=== PATIENT | female | born 1940 | race Caucasian/White ===

== ENCOUNTER 2017-12-18 05:24 | Emergency (ER) | payer MEDICARE, OTHER ==
[~2017-12-18 05:24] MED LIST: CLON1 OR; GABA300 PO; SYNT112T PO; [UNRECOGNIZED DRUG - OTHER] PO
[2017-12-18 05:26] VITALS: BP 129/60; PULSE 78; RESP 18; TEMP 98.9; O2SAT 96
[2017-12-18] MEDS ORDERED: GABA300C5 PO (05:41)
[2017-12-18] MEDS ORDERED: CLON1 PO (05:41)
[2017-12-18] MEDS ORDERED: SYNT112T PO (05:41)
[2017-12-18] MEDS ORDERED: ACIP20TA19 PO (05:41)
[2017-12-18] MEDS ORDERED: SODIUM CHLORIDE 0.9% FLUSH 10 ML FLUSH IV FLUSH PRN (06:00)
[2017-12-18] MEDS ORDERED: DICYCLOMINE HCL 10 MG CAP PO ONE (06:00)
--- NOTE | 2017-12-18 06:08 | PD ---
HPI Chief Complaint: Abdominal Pain Time Seen by Provider: 05:44 Travel History International Travel<30 days: No Contact w/Intl Traveler<30days: No Traveled to known affect area: No History of Present Illness HPI Patient is a 77-year-old female with a history of kidney stone CKD and diverticulitis presents emergency department for evaluation of suprapubic and left lower quadrant abdominal pain for the past 3-4 days. Patient has tried several [id number] medications including Gas-X MiraLAX and Pepto-Bismol without significant relief. States that it is suprapubic mostly in area but she has not had any burning urination or any blood in the urine, no vaginal bleeding vaginal discharge diarrhea constipation blood in stool or melanotic stools. States pain is intermittent, crampy, gradually worsening, over the past 3 days, context and associated signs symptoms as above. PFSH Past Medical History Blood Disorders: No Anxiety: Yes Cancer: Yes (BREAST) Cardiovascular Problems: No Diminished Hearing: No Endocrine: No Gastrointestinal Disorders: Yes (GRAVES, DIVERTICULITIS ) Genitourinary: No Hiatal Hernia: Yes Immune Disorder: No Kidney Stones: Yes (LITHOTRIPSY X 2 2002) Medical other: Yes (ARTHRITIS, REFLUX) Musculoskeletal: Yes (OSTEO MYILITIS L LLE) Neurologic: No Psychiatric: Yes Reproductive: No Respiratory: No Radiation Therapy: Yes Thyroid Disease: Yes Past Surgical History Abdominal Surgery: Yes (RONN.) Cardiac Surgery: No Cholecystectomy: Yes (1997) Ear Surgery: No Endocrine Surgery: No Eye Surgery: No Genitourinary Surgery: No Gynecologic Surgery: Yes (LEFT LUMPECTOMY ) Hysterectomy: Yes (1999) Oral Surgery: No Thoracic Surgery: Yes (LEFT BREAST LUMPECTOMY) Other Surgery: Yes (LEFT LUMPECTOMY AND NODE REMOVAL/BREAST CA 1989) Social History Alcohol Use: Yes (OCC) Tobacco Use: No (Stopped 1989/started age 20. Use to smoke 1 ) Substance Use: No Allergies-Medications (Allergen,Severity, Reaction): Coded Allergies: Sulfa (Sulfonamide Antibiotics) (Unverified Allergy, Severe, NAUSEA, ) adhesive (Unverified Allergy, Mild, Rash, 02/16/17) quinine (Unverified Adverse Reaction, Severe, ITCHING, 02/16/17) REACTION: ITCHING Reported Meds & Prescriptions Reported Meds & Active Scripts Active Reported Aciphex (Rabeprazole Sodium) 20 Mg Tab 20 Mg PO DAILY Synthroid (Levothyroxine Sodium) 112 Mcg Tab 112 Mcg PO DAILY Gabapentin 300 Mg Cap 300 Mg PO BID Klonopin (Clonazepam) 1 Mg Tab 1 Mg PO BID Review of Systems Except as stated in HPI: all other systems reviewed are Neg Physical Exam Narrative GENERAL: Well-developed well-nourished no obvious distress SKIN: Focused skin assessment warm/dry. HEAD: Atraumatic. Normocephalic. EYES: Pupils equal and round. No scleral icterus. No injection or drainage. ENT: No nasal bleeding or discharge. Mucous membranes pink and moist. NECK: Trachea midline. No JVD. CARDIOVASCULAR: Regular rate and rhythm. No murmur appreciated. RESPIRATORY: No accessory muscle use. Clear to auscultation. Breath sounds equal bilaterally. GASTROINTESTINAL: Abdomen soft, patient is mildly tender over the suprapubic region, no rebound no percussive tenderness, trivial amount of tenderness in left lower quadrant, no tenderness in the right lower quadrant. There is no guarding. He a tenderness, nondistended. Hepatic and splenic margins not palpable. MUSCULOSKELETAL: No obvious deformities. No clubbing. No cyanosis. No edema. NEUROLOGICAL: Awake and alert. No obvious cranial nerve deficits. Motor grossly within normal limits. Normal speech. PSYCHIATRIC: Appropriate mood and affect; insight and judgment normal. Data Data Last Documented VS Vital Signs Date Time Temp Pulse Resp B/P (MAP) Pulse Ox O2 Delivery O2 Flow Rate FiO2 12/18/17 05:26 98.9 78 18 129/60 (83) 96 Orders Orders Complete Blood Count With Diff (12/18/17 05:57) Comprehensive Metabolic Panel (12/18/17 05:57) Lipase (12/18/17 05:57) Urinalysis - C+S If Indicated (12/18/17 05:57) Iv Access Insert/Monitor (12/18/17 05:57) Ecg Monitoring (12/18/17 05:57) Oximetry (12/18/17 05:57) Sodium Chloride 0.9% Flush (Ns Flush) (12/18/17 06:00) Dicyclomine (Bentyl) (12/18/17 06:00) Ct Abd/Pel W Iv Contrast(Rout) (12/18/17 ) Labs Laboratory Tests Test 12/18/17 06:05 12/18/17 06:17 White Blood Count 6.8 TH/MM3 Red Blood Count 4.65 MIL/MM3 Hemoglobin 13.6 GM/DL Hematocrit 39.8 % Mean Corpuscular Volume 85.7 FL Mean Corpuscular Hemoglobin 29.4 PG Mean Corpuscular Hemoglobin Concent 34.3 % Red Cell Distribution Width 14.2 % Platelet Count 150 TH/MM3 Mean Platelet Volume 8.1 FL Neutrophils (%) (Auto) 77.1 % Lymphocytes (%) (Auto) 14.0 % Monocytes (%) (Auto) 6.5 % Eosinophils (%) (Auto) 2.0 % Basophils (%) (Auto) 0.4 % Neutrophils # (Auto) 5.3 TH/MM3 Lymphocytes # (Auto) 1.0 TH/MM3 Monocytes # (Auto) 0.4 TH/MM3 Eosinophils # (Auto) 0.1 TH/MM3 Basophils # (Auto) 0.0 TH/MM3 CBC Comment DIFF FINAL Differential Comment Blood Urea Nitrogen 18 MG/DL Creatinine 0.96 MG/DL Random Glucose 106 MG/DL Total Protein 6.8 GM/DL Albumin 3.7 GM/DL Calcium Level 8.8 MG/DL Alkaline Phosphatase 74 U/L Aspartate Amino Transf (AST/SGOT) 11 U/L Alanine Aminotransferase (ALT/SGPT) 15 U/L Total Bilirubin 0.7 MG/DL Sodium Level 142 MEQ/L Potassium Level 3.5 MEQ/L Chloride Level 110 MEQ/L Carbon Dioxide Level 22.0 MEQ/L Anion Gap 10 MEQ/L Estimat Glomerular Filtration Rate 56 ML/MIN Lipase 130 U/L Urine Color Straw Urine Turbidity CLEAR Urine pH 5.0 Urine Specific [place] 1.006 Urine Protein NEG mg/dL Urine Glucose (UA) NEG mg/dL Urine Ketones NEG mg/dL Urine Occult Blood SMALL Urine Nitrite NEG Urine Bilirubin NEG Urine Urobilinogen LESS THAN 2 mg/dL Urine Leukocyte Esterase TRACE Urine RBC 1 /hpf Urine WBC 2 /hpf Urine Squamous Epithelial Cells <1 /hpf Urine Mucus FEW /lpf Microscopic Urinalysis Comment CULT NOT INDICATED MDM Medical Decision Making Medical Screen Exam Complete: Yes Emergency Medical Condition: Yes Differential Diagnosis Diverticulitis, kidney stone, diverticulosis, UTI. Narrative Course patient roomed in the ER, certainly with her suprapubic pain my differential diagnosis that leads is UTI. However the patient tested negative for UTI, diverticulitis and complications thereof as well as kidney stones are on the differential as well. Given the labs are normal but her age I recommended for CAT scan of her abdomen, patient discussed with at 07 100 shift change to follow-up the CT and disposition appropriately. Jeff Archer MD Dec 18, 2017 06:08
[2017-12-18 06:23] LABS: AUTOMATED NEUTROPHIL # 5.3 TH/MM3 (1.8-7.7); BASOPHIL % 0.4 % (0.0-2.0); EOSINOPHIL # 0.1 TH/MM3 (0-0.4); HEMATOCRIT 39.8 % (35.0-46.0); HEMOGLOBIN 13.6 GM/DL (11.6-15.3); MEAN CELL VOLUME 85.7 FL (80.0-100.0); MEAN CORPUSCULAR HEMOGLOBIN 29.4 PG (27.0-34.0); MEAN CORPUSCULAR HGB CONC 34.3 % (32.0-36.0); MEAN PLATELET VOLUME 8.1 FL (7.0-11.0); MONO % 6.5 % (0.0-8.0); MONOCYTE # 0.4 TH/MM3 (0-0.9); NEUT % 77.1 % (16.0-70.0); PLATELET COUNT 150 TH/MM3 (150-450); RED BLOOD COUNT 4.65 MIL/MM3 (4.00-5.30); RED CELL DISTRIBUTION WIDTH 14.2 % (11.6-17.2); WHITE BLOOD COUNT 6.8 TH/MM3 (4.0-11.0)
[2017-12-18 06:41] LABS: ALBUMIN 3.7 GM/DL (3.4-5.0); AST (GOT) 11 U/L (15-37); BLOOD UREA NITROGEN 18 MG/DL (7-18); CALCIUM 8.8 MG/DL (8.5-10.1); CHLORIDE 110 MEQ/L (98-107); CREATININE 0.96 MG/DL (0.50-1.00); GLOMERULAR FILTRATION RATE 56 ML/MIN (>89); GLUCOSE,RANDOM 106 MG/DL (74-106); SODIUM (NA) 142 MEQ/L (136-145)
[2017-12-18 06:44] LABS: ALKALINE PHOSPHATASE 74 U/L (45-117); ALT (GPT) 15 U/L (10-53); TOTAL BILIRUBIN ADULT 0.7 MG/DL (0.2-1.0); TOTAL PROTEIN 6.8 GM/DL (6.4-8.2)
[2017-12-18 06:47] LABS: BILIRUBIN, URINE NEG (NEG); BLOOD, URINE SMALL (NEG); GLUCOSE,URINE NEG (NEG); KETONE, URINE NEG (NEG); MUCUS URINE FEW /lpf (OCC); NITRITE,URINE NEG (NEG); SQUAMOUS EPITHELIAL CELL URINE <1 /hpf (0-5); URINE COLOR Straw (YELLW/STRAW); URINE LEUKOCYTE ESTERASE TRACE (NEG)
[2017-12-18] MEDS ORDERED: IOHEXOL 350 MG/ML 10 ML VIAL (for RAD DIAG) IVCONTRAST ONE (08:02)
--- NOTE | 2017-12-18 08:28 | RADRPT ---
EXAM DATE: 12/18/2017 8:13 AM EDT AGE/SEX: 77 years / Female INDICATIONS: Left lower abdomen pain and suprapubic for three days. CLINICAL DATA: This is the patient's initial encounter. Patient reports that signs and symptoms have been present for 3 days and indicates a pain score of 7/10. MEDICAL/SURGICAL HISTORY: Hiatal hernia. Carcinoma, breast. Diverticulitis. Kidney stones. Cholecystectomy. Hysterectomy. Lithotripsy. ORAL CONTRAST: No oral contrast ingested. RADIATION DOSE: 8.77 CTDI (mGy) COMPARISON: [facility] [place], CT ABDOMEN & PELVIS W/O CONTRAST, 04/29/2013. . TECHNIQUE: Multiple contiguous axial images were obtained through the abdomen and pelvis following b olus infusion of 92 ml Omnipaque 350 (iohexol) nonionic water-soluble contrast as a single exam dos e. No oral contrast ingested. Using automated exposure control and adjustment of the mA and/or kV ac cording to patient size, the radiation dose was kept as low as reasonably achievable to obtain optima l diagnostic quality images. FINDINGS: Lower chest: No acute abnormality is identified. Hepatobiliary: No focal liver lesion is identified. Hepatic vasculature demonstrates no abnormality. Gallbladder is absent with clips in the gallbladder fossa. Kidneys: There is a nonobstructing stone in the right upper pole renal collecting system measuring 4 mm. A nonobstructing stone is present in the left lower pole collecting system measuring 11 x 7 mm. T here is abnormal high density within the left upper renal collecting system. No hydronephrosis is pre sent. Adrenal Glands: Within normal limits. Spleen: Within normal limits. There are punctate calcifications in the spleen. Pancreas: Within normal limits. Vascular: The aorta is nonaneurysmal. There is severe atherosclerotic disease of the aorta. Bowel/Mesentery: A small hiatal hernia is present. Small bowel demonstrates no abnormality. There is sigmoid diverticulosis with wall thickening of the mid sigmoid colon and pericolonic inflammation. No abscess, free air, or free fluid is present. Abdominal Wall: No hernia is visualized. Retroperitoneum: No lymphadenopathy. Bladder: No wall thickening or mass. Reproductive: Uterus is absent. No adnexal abnormality is seen. Inguinal: No lymphadenopathy or hernia. Musculoskeletal: No acute osseous abnormality is identified. There is levoscoliosis with multilevel d egenerative change throughout the lumbar spine. CONCLUSION: 1. The above findings are diagnostic of a sigmoid diverticulitis. The mid sigmoid colon demonstrates abnormal wall thickening and pericolonic inflammation and contains multiple diverticula. There is no abscess, free air, or free fluid present. 2. There is abnormal hypodensity material within the left upper pole renal collecting system. The ap pearance is suspicious for a mass. Transitional cell carcinoma could have this appearance. When patie nt condition permits suggest renal protocol MRI with and without intravenous contrast for further allison racterization. 3. Nonacute findings include small hiatal hernia, bilateral nonobstructing renal stones, and severe atherosclerotic disease. Electronically signed by: Derek Hogan MD 12/18/2017 8:26 AM EDT
[2017-12-18] MEDS ORDERED: METR-1 PO (08:44)
[2017-12-18] MEDS ORDERED: IBUP-232 PO (08:44)
[2017-12-18] MEDS ORDERED: CIPR-9 PO (08:44)
--- NOTE | 2017-12-18 08:44 | PD ---
Physical Exam Date Seen by Provider: Dec 18, 2017 Time Seen by Provider: 07:00 Narrative Patient initially seen by Dr. Archer, please see his notes for further details. She is awaiting CAT scan, history of diverticulitis. Lab work was fairly unremarkable. Laboratory Tests Test 12/18/17 06:05 12/18/17 06:17 Neutrophils (%) (Auto) 77.1 % (16.0-70.0) Aspartate Amino Transf (AST/SGOT) 11 U/L (15-37) Chloride Level 110 MEQ/L (98-107) Estimat Glomerular Filtration Rate 56 ML/MIN (>89) Urine Occult Blood SMALL (NEG) Urine Leukocyte Esterase TRACE (NEG) Urine Mucus FEW /lpf (OCC) Last 24 hours Impressions Abdomen/Pelvis CT 12/18/17 0000 Signed Impressions: CONCLUSION: 1. The above findings are diagnostic of a sigmoid diverticulitis. The mid sigm oid colon demonstrates abnormal wall thickening and pericolonic inflammation an d contains multiple diverticula. There is no abscess, free air, or free fluid p resent. 2. There is abnormal hypodensity material within the left upper pole renal col lecting system. The appearance is suspicious for a mass. Transitional cell carc inoma could have this appearance. When patient condition permits suggest renal protocol MRI with and without intravenous contrast for further characterization . 3. Nonacute findings include small hiatal hernia, bilateral nonobstructing gutierrez al stones, and severe atherosclerotic disease. CAT scan is showing signs of diverticulitis which I plan to treat with Flagyl, Cipro, and ibuprofen. She also has a left abnormal hypodensity area on the apex of the left kidney which will need to be evaluated further with an MRI with primary care doctor. At this point, I have notified her of the finding and have notified her that this could represent a mass, needs evaluation. Patient states understanding. She should return for any worsening in symptoms as needed. The plan has been discussed with her and she states understanding. Data Data Last Documented VS Vital Signs Date Time Temp Pulse Resp B/P (MAP) Pulse Ox O2 Delivery O2 Flow Rate FiO2 12/18/17 05:26 98.9 78 18 129/60 (83) 96 Orders Orders Complete Blood Count With Diff (12/18/17 05:57) Comprehensive Metabolic Panel (12/18/17 05:57) Lipase (12/18/17 05:57) Urinalysis - C+S If Indicated (12/18/17 05:57) Iv Access Insert/Monitor (12/18/17 05:57) Ecg Monitoring (12/18/17 05:57) Oximetry (12/18/17 05:57) Sodium Chloride 0.9% Flush (Ns Flush) (12/18/17 06:00) Dicyclomine (Bentyl) (12/18/17 06:00) Ct Abd/Pel W Iv Contrast(Rout) (12/18/17 ) Iohexol 350 Inj (Omnipaque 350 Inj) (12/18/17 08:02) Ed Discharge Order (12/18/17 08:41) Labs Laboratory Tests Test 12/18/17 06:05 12/18/17 06:17 White Blood Count 6.8 TH/MM3 Red Blood Count 4.65 MIL/MM3 Hemoglobin 13.6 GM/DL Hematocrit 39.8 % Mean Corpuscular Volume 85.7 FL Mean Corpuscular Hemoglobin 29.4 PG Mean Corpuscular Hemoglobin Concent 34.3 % Red Cell Distribution Width 14.2 % Platelet Count 150 TH/MM3 Mean Platelet Volume 8.1 FL Neutrophils (%) (Auto) 77.1 % Lymphocytes (%) (Auto) 14.0 % Monocytes (%) (Auto) 6.5 % Eosinophils (%) (Auto) 2.0 % Basophils (%) (Auto) 0.4 % Neutrophils # (Auto) 5.3 TH/MM3 Lymphocytes # (Auto) 1.0 TH/MM3 Monocytes # (Auto) 0.4 TH/MM3 Eosinophils # (Auto) 0.1 TH/MM3 Basophils # (Auto) 0.0 TH/MM3 CBC Comment DIFF FINAL Differential Comment Blood Urea Nitrogen 18 MG/DL Creatinine 0.96 MG/DL Random Glucose 106 MG/DL Total Protein 6.8 GM/DL Albumin 3.7 GM/DL Calcium Level 8.8 MG/DL Alkaline Phosphatase 74 U/L Aspartate Amino Transf (AST/SGOT) 11 U/L Alanine Aminotransferase (ALT/SGPT) 15 U/L Total Bilirubin 0.7 MG/DL Sodium Level 142 MEQ/L Potassium Level 3.5 MEQ/L Chloride Level 110 MEQ/L Carbon Dioxide Level 22.0 MEQ/L Anion Gap 10 MEQ/L Estimat Glomerular Filtration Rate 56 ML/MIN Lipase 130 U/L Urine Color Straw Urine Turbidity CLEAR Urine pH 5.0 Urine Specific [place] 1.006 Urine Protein NEG mg/dL Urine Glucose (UA) NEG mg/dL Urine Ketones NEG mg/dL Urine Occult Blood SMALL Urine Nitrite NEG Urine Bilirubin NEG Urine Urobilinogen LESS THAN 2 mg/dL Urine Leukocyte Esterase TRACE Urine RBC 1 /hpf Urine WBC 2 /hpf Urine Squamous Epithelial Cells <1 /hpf Urine Mucus FEW /lpf Microscopic Urinalysis Comment CULT NOT INDICATED MDM Medical Record Reviewed: Yes Supervised Visit with COLLINS: No Diagnosis Primary Impression: Diverticulitis Additional Instruction: There is an abnormal area above the left kidney which will need to be characterized further with an MRI, talk to your primary care doctor regarding this issue. Return for any worsening in pain, fevers, and as needed. Med/Other Pt SpecificInfo: Prescription(s) given Scripts Ibuprofen (Ibuprofen) 600 Mg Tab 600 MG PO Q6H Y for Pain/Inflammation, #20 TAB 0 Refills Prov: Neda Dial MD 12/18/17 Metronidazole (Flagyl) 500 Mg Tab 500 MG PO TID for Infection for 7 Days, TAB 0 Refills Prov: Neda Dial MD 12/18/17 Ciprofloxacin (Cipro) 500 Mg Tab 500 MG PO BID for Infection for 7 Days, #14 TAB 0 Refills Prov: Neda Dial MD 12/18/17 Disposition: 01 DISCHARGE HOME Condition: Stable Neda Dial MD Dec 18, 2017 08:44
== END 2017-12-18 09:26 | disposition home or self-care (01) ==
LOC: NEPE 05:24
DX: K57.92 Diverticulitis of intestine, part unspecified, without perforation or abscess without bleeding (principal); K44.9 Diaphragmatic hernia without obstruction or gangrene; N20.0 Calculus of kidney; F41.9 Anxiety disorder, unspecified; M19.90 Unspecified osteoarthritis, unspecified site; K21.9 Gastro-esophageal reflux disease without esophagitis; M86.9 Osteomyelitis, unspecified; E07.9 Disorder of thyroid, unspecified; F17.200 Nicotine dependence, unspecified, uncomplicated; Z79.899 Other long term (current) drug therapy; Z88.2 Allergy status to sulfonamides; Z88.8 Allergy status to other drugs, medicaments and biological substances; Z85.3 Personal history of malignant neoplasm of breast; Z87.19 Personal history of other diseases of the digestive system; Z87.442 Personal history of urinary calculi
CPT/HCPCS: 74177; 80053; 81001; 83690; 85025; 99284; Q9967

== ENCOUNTER 2018-04-15 10:42 | Inpatient (IN) ==
[2018-04-15] MEDS ORDERED: Metoprolol Tartrate 25 MG Tablet PO ONE (11:15)
[2018-04-15] MEDS ORDERED: Chlorhexidine Gluconate 2% 1 Pack (2 Cloths) TOPICAL ONE (11:15)
[2018-04-15] MEDS ORDERED: Sodium Chlor 0.9% Inj 500 ML IV.CONT ONE ×2 (11:15→12:42)
[2018-04-15] MEDS ORDERED: ceFAZolin 2 GM IV; once IV.SIG ONE (12:00)
[2018-04-15 12:02] LABS: Prothrombin Time 10.1 sec (9.8-11.6)
[2018-04-15] MEDS ORDERED: Phenylephrine/NS 1000 MCG/10ML Syringe IV.PUSH ONE (12:42)
[2018-04-15] MEDS ORDERED: Lidocaine PF 1% Inj 5 ML Syringe INFILTRATN ONE (12:42)
[2018-04-15] MEDS ORDERED: Sugammadex Inj 200 MG/2 ML Vial IV.PUSH ONE (16:58)
[2018-04-15] MEDS ORDERED: fentaNYL Citrate Inj 100 MCG/2 ML Ampul ONE (17:04)
[2018-04-15] MEDS ORDERED: Morphine Inj 4 MG/ML Vial IV.PUSH PRN (17:14)
[2018-04-15] MEDS ORDERED: *morphine SULFATE 10 MG/ML PERIprocedure ONLY ONE (17:57)
[2018-04-15] MEDS ORDERED: Morphine Inj 4 MG/ML Vial ONE (17:59)
[2018-04-15] MEDS ORDERED: Pantoprazole Inj 40 MG Vial IV.PUSH SCH (18:00)
[2018-04-15] MEDS ORDERED: Sodium Chlor 0.9% Inj 1,000 ML IV.SIG SCH (18:00)
[2018-04-15 18:04] LABS: Baso % (Auto) 0.3 % (0.0-2.0); Eos % (Auto) 0.1 % (0.0-4.0); Hematocrit 38.4 % (35.0-46.0); Hemoglobin 13.2 gm/dL (11.6-15.3); Lymph # (Auto) 0.7 th/mm3 (1.0-4.8); Lymph % (Auto) 7.2 % (9.0-44.0); Mean Corpuscular HGB Conc 34.5 % (32.0-36.0); Mean Corpuscular Hemoglobin 29.7 pg (27.0-34.0); Mean Corpuscular Volume 86.2 fL (80.0-100.0); Mean Platelet Volume 7.8 fL (7.0-11.0); Mono # (Auto) 0.2 th/mm3 (0.0-0.9); Mono % (Auto) 1.9 % (0.0-8.0); Neut # (Auto) 8.3 th/mm3 (1.8-7.7); Neut % (Auto) 90.5 % (16.0-70.0); Platelet Count 148 th/mm3 (150-450); Red Blood Count 4.46 mil/mm3 (4.00-5.30); Red Cell Distribution Width 14.2 % (11.6-17.2); White Blood Count 9.1 th/mm3 (4.0-11.0)
[2018-04-15] MEDS ORDERED: *morphine SULFATE 4 MG/ML PERIprocedure ONLY ONE ×2 (18:07→18:31)
[2018-04-15] MEDS ORDERED: *Meperidine Inj 25 MG/ML Vial PERIprocedural Use ONLY ONE (18:13)
[2018-04-15] MEDS ORDERED: Clindamycin Inj 600 MG/4 ML Vial ONE (18:22)
[2018-04-15] MEDS: Clindamycin 600 mg/NS Premix 600 MG/50 ML PIGGYBACK IV.SIG SCH (18:30)
[2018-04-15 18:40] LABS: Calcium 8.4 mg/dL (8.5-10.1); Potassium 3.8 meq/L (3.5-5.1)
[2018-04-15] MEDS ORDERED: *HYDROmorphone PF Inj 1 MG/ML Ampul PERIprocedural Use ONLY ONE (18:46)
--- NOTE | 2018-04-15 19:07 | MP ---
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 PROCEDURE PERFORMED: Robotic-assisted laparoscopic left nephroureterectomy with bladder cuff. SURGEON: Shahzad Robert MD ANESTHESIA: General. COMPLICATIONS: None. PREOPERATIVE ANTIBIOTICS: Ancef 2 grams IV. DRAINS: Modi catheter to gravity drainage. SPECIMENS: Left kidney and ureter and bladder cuff for permanent. ESTIMATED BLOOD LOSS: 150 mL. FLUIDS: 1700 mL of crystalloid per anesthesia. DISPOSITION: Stable to recovery. INDICATIONS: The patient is a 77-year-old female who was found to have a filling defect in the upper pole of the left kidney on a recent CT scan. The patient underwent a cystoscopy and ureteroscopy with biopsy and was found to have high-grade T1 disease. The patient was referred for removal of her kidney and ureter. After treatment options were discussed, she elected to proceed. Informed consent was obtained. DETAILS OF PROCEDURE: The patient was properly identified and brought back to the operating room and was laid supine on the operating table. A proper timeout was performed. Under the direction of anesthesiology, the patient was intubated and induced under general anesthetic. Preoperative antibiotics in the form of Ancef 2 grams IV were given within 1 hour of the start of the procedure. A Modi catheter was placed under sterile technique. She was then placed in the right lateral decubitus position with the left side up. All pressure points were padded. She was then prepped and draped in normal sterile surgical fashion. A stab incision was made superior and lateral to the umbilicus. A Veress needle was then used to gain entrance into the abdominal cavity. Insufflation was then achieved and pneumoperitoneum was reached. The incision was extended approximately 2 cm. We then passed a long 12 mm camera port under direct vision into the abdominal cavity. There was no evidence of any intra-abdominal injury. The intra-abdominal cavity did not appear to have any adhesions. Four other ports were then placed under direct visualization, including two 8 mm robotic ports which were triangulated off of the camera port and two 12 mm embalmer assistant ports in the midline, 1 superior and 1 inferior to the umbilicus. The robot was then brought into position and docked. I began by reflecting the colon medially by taking down the white line of Toldt. This exposed the retroperitoneum. She did not have much perinephric fat. At this time, I was easily able to find the ureter and gonadal vein through blunt dissection. I developed a plane between these structures and the psoas muscle and dissected the posterior portion of the kidney with blunt dissection as I followed the insertion of the left gonadal vein to the left renal vein. The left gonadal vein was subsequently taken with the robotic vessel sealer. At this point, the vein and artery were carefully dissected out. The artery was in a very difficult position in order to divide; however, was easily accessible if we divided the vein first. Therefore, the renal vein was then divided and taken with an endovascular GI stapler. There was some back bleeding and the kidney got slightly congested as we further dissected out the renal artery, but then the renal artery was divided as well with no issues. At this point, the hilum appeared to be dry. I then dissected the superior and lateral portions of the kidney with a combination of electrocautery and blunt dissection, leaving just the inferior portion of the kidney intact with the ureter. At this point, I then placed a Hem-o-marc across the proximal ureter and then carefully dissected the ureter all the way down in the pelvis distal to the iliacs and even further until I got to the bladder. The bladder was gently filled, which enabled the intramural ureter to be dissected out of the bladder. At this point, I then scored around the ureter and bladder and removed the entire ureter in its entirety with a small piece of bladder tissue. This left a small hole in the bladder. This was placed in an EndoCatch bag for later removal. Due to the patient's previous hysterectomy and the narrowness of her pelvis, I was unable to close the hole in its entirety, but it was a very tiny hole and therefore, it should be able to close without issues with just catheter drainage. At this point, with the specimen in the EndoCatch bag, I then inspected the renal hilum and adrenal bed. It appeared to be dry with no evidence of any bleeding. Then, 5 mL of Evicel was used on the hilum and the renal fossa for hemostatic purposes. At this point, the kidney was then extracted through the left lower quadrant incision after extending the incision. The incision was closed in 2 layers. The peritoneum was closed with 3-0 Vicryl and the fascia was closed with a running 1-0 PDS. The epigastrics appeared to be intact. There was no evidence of any bleeding. A second look was then performed. The abdomen was reinsufflated. The pelvis and renal fossa appeared to be dry. The underside of the incision was free of bowel. At this point, all ports were removed under direct visualization. The incisions were closed with Monocryl sutures and reinforced with Dermabond. Sponge and needle counts and instrument counts were correct at the end of the case. The patient was extubated and taken to the recovery room in stable condition. She will be admitted for routine postoperative care. MD WILMA Lozada/vicky , 05:26 PM , 05:38 PM
[2018-04-15] MEDS: Docusate Sodium 100 MG Capsule PO SCH (20:42)
[2018-04-15] MEDS: Gabapentin 300 MG Capsule PO SCH (20:42)
[2018-04-15] MEDS: clonazePAM 1 MG Tablet PO SCH (20:42)
[2018-04-16] MEDS: Clindamycin 600 mg/NS Premix 600 MG/50 ML PIGGYBACK IV.SIG SCH ×2 (04:22→09:49)
[2018-04-16] MEDS: Levothyroxine 100 MCG Tablet PO SCH (05:15)
[2018-04-16 05:56] LABS: Hematocrit 34.4 % (35.0-46.0); Hemoglobin 11.8 gm/dL (11.6-15.3); Mean Corpuscular HGB Conc 34.4 % (32.0-36.0); Mean Corpuscular Hemoglobin 29.7 pg (27.0-34.0); Mean Corpuscular Volume 86.2 fL (80.0-100.0); Mean Platelet Volume 8.3 fL (7.0-11.0); Platelet Count 145 th/mm3 (150-450); White Blood Count 7.8 th/mm3 (4.0-11.0)
[2018-04-16 06:25] LABS: Calcium 7.9 mg/dL (8.5-10.1); Carbon Dioxide 23.3 meq/L (21.0-32.0); Potassium 4.5 meq/L (3.5-5.1)
[2018-04-16] MEDS: clonazePAM 1 MG Tablet PO SCH ×2 (09:42→20:13)
[2018-04-16] MEDS: Gabapentin 300 MG Capsule PO SCH ×2 (09:43→20:12)
[2018-04-16] MEDS: Docusate Sodium 100 MG Capsule PO SCH ×2 (09:43→20:13)
--- NOTE | 2018-04-16 12:05 | P.PNURO ---
Subjective Patient symptoms today: pain well controlled. Denies N/V/F/C. Tolerating clears. Has not been OOB. Denies flatus. BP has been on low side. Objective Vital Signs: Vital Signs 04/15/18 17:45 04/15/18 18:00 04/15/18 18:15 Temperature 97.3 F L Pulse Rate 72 71 68 Respiratory Rate 20 21 23 Blood Pressure 122/60 128/67 118/68 Pulse Oximetry 97 98 99 04/15/18 18:30 04/15/18 18:45 04/15/18 19:00 Temperature 97.3 F L Pulse Rate 67 63 64 Respiratory Rate 24 23 8 L Blood Pressure 105/55 L 116/56 L 116/58 L Pulse Oximetry 98 98 100 04/15/18 19:51 04/15/18 19:52 04/15/18 19:53 Temperature Pulse Rate Respiratory Rate 10 L 22 20 Blood Pressure Pulse Oximetry 04/15/18 20:00 04/15/18 21:17 04/16/18 00:00 Temperature 97.2 F L 97.3 F L Pulse Rate 60 63 Respiratory Rate 19 19 Blood Pressure 100/54 L 108/55 L Pulse Oximetry 99 100 96 04/16/18 08:00 04/16/18 09:45 Temperature 97.3 F L Pulse Rate 50 L Respiratory Rate 16 Blood Pressure 94/49 L Pulse Oximetry 96 96 Intake & Output 04/15/18 04/16/18 04/16/18 18:59 06:59 18:59 Intake Total 2160 / 2160 1999 / 1999 50 / 50 Output Total 750 / 750 980 / 980 Balance 1410 / 1410 1020 / 1020 50 / 50 Weight 79.5 kg 79.5 kg Intake: IV 1100 / 1100 50 / 50 Cleocin 600 mg/NS Premix 600 mg 100 / 100 50 / 50 In 50 ml @ 100 mls/hr IV.SIG Q8H SONJA Rx#:[id number] NS Inj 1,000 ML @ 125 mls/hr IV 1000 / 1000 .SIG .Q10H SONJA Rx#:[id number] Oral 60 / 60 900 / 900 Anesthesia Amount 2100 / 2100 Output: Urine 900 / 900 Estimated Blood Loss 150 / 150 Urine Amount (Catheter) 600 / 600 80 / 80 Indwelling Urethral Catheter 600 / 600 80 / 80 Other: Weight On Admission 79.5 kg Result Diagrams: 04/16/18 03:36 04/16/18 03:36 Medications and IVs: Active Medications Generic Name Dose Route Start Last Admin Trade Name Pamela PRN Reason Stop Dose Admin Clonazepam 1 mg 04/15/18 21:00 04/16/18 09:42 Klonopin PO 1 mg BID SONJA Administration Docusate Sodium 100 mg 04/15/18 21:00 04/16/18 09:43 Colace PO 100 mg BID SONJA Administration Gabapentin 300 mg 04/15/18 21:00 04/16/18 09:43 Neurontin PO 300 mg BID SONJA Administration Sodium Chloride 1,000 mls @ 125 mls/hr 04/15/18 18:00 04/16/18 05:18 Ns Inj IV.SIG Infused .Q10H SONJA Infusion Levothyroxine Sodium 100 mcg 04/16/18 06:00 04/16/18 05:15 Synthroid PO 100 mcg DAILY@0600 SONJA Administration Miscellaneous Information 1 each 04/15/18 18:06 Misc Nursing Information OTHER 04/16/18 18:06 UNSCH PRN SEE LABEL COMMENTS Morphine Sulfate 4 mg 04/15/18 17:14 Morphine Inj IV.PUSH Q4H PRN BREAKTHROUGH PAIN Ondansetron HCl 4 mg 04/15/18 17:14 Zofran Inj IV.PUSH Q6H PRN NAUSEA OR VOMITING Oxycodone/Acetaminophen 2 tab 04/15/18 17:13 Percocet 5/325 Mg PO Q4H PRN PAIN SCALE 6 TO 10 Oxycodone/Acetaminophen 1 tab 04/15/18 17:17 04/16/18 09:44 Percocet 5/325 Mg PO 1 tab Q4H PRN Administration PAIN SCALE 3 TO 5 Pantoprazole Sodium 40 mg 04/15/18 21:00 04/15/18 20:42 Protonix PO 40 mg HS SONJA Administration Objective Remarks: NAD. A/O x 3 CTAB RRR soft, NT, ND. Inc c/d/i Ext NT. No edema urine clear in curry. Assessment and Plan - Plan POD #1 s/p Left Robotic Nephroureterectomy -Good UOP, but hypotensive. 1L bolus. continue IVF. -Hgb stable. Repeat in a.m. -Creatinine rising as expected. Repeat in A.M. -Regular diet in morning. -D/C antoinette in A.M. -Ambulate, IS.
[2018-04-16] MEDS ORDERED: Sod Chloride 0.9% Inj 1,000 ML IV.SIG SCH (12:15)
[2018-04-17 05:53] LABS: Hematocrit 30.8 % (35.0-46.0); Hemoglobin 10.6 gm/dL (11.6-15.3); Mean Corpuscular HGB Conc 34.5 % (32.0-36.0); Mean Corpuscular Hemoglobin 29.9 pg (27.0-34.0); Mean Corpuscular Volume 86.6 fL (80.0-100.0); Mean Platelet Volume 8.4 fL (7.0-11.0); Platelet Count 107 th/mm3 (150-450); Red Blood Count 3.56 mil/mm3 (4.00-5.30); Red Cell Distribution Width 13.9 % (11.6-17.2); White Blood Count 5.4 th/mm3 (4.0-11.0)
[2018-04-17] MEDS: Levothyroxine 100 MCG Tablet PO SCH (06:00)
[2018-04-17 06:09] LABS: Calcium 7.8 mg/dL (8.5-10.1); Carbon Dioxide 24.7 meq/L (21.0-32.0); Potassium 4.3 meq/L (3.5-5.1)
[2018-04-17] MEDS: Gabapentin 300 MG Capsule PO SCH ×2 (08:56→21:14)
[2018-04-17] MEDS: Docusate Sodium 100 MG Capsule PO SCH ×2 (08:56→21:14)
[2018-04-17] MEDS: clonazePAM 1 MG Tablet PO SCH ×2 (08:59→21:16)
--- NOTE | 2018-04-17 11:54 | P.PNURO ---
Subjective Patient symptoms today: feels good. abdominal pain comes and goes. Voiding on own. Had a BM. Ambulating. tolerating diet. Objective Vital Signs: Vital Signs 04/16/18 12:00 04/16/18 16:00 04/16/18 20:00 Temperature 97.8 F 98 F 98.3 F Pulse Rate 59 L 52 L 57 L Respiratory Rate 16 16 18 Blood Pressure 77/51 L 111/55 L 106/59 L Pulse Oximetry 94 L 97 95 04/16/18 22:12 04/17/18 00:00 04/17/18 06:13 Temperature 97.8 F Pulse Rate 84 Respiratory Rate 18 18 Blood Pressure 105/63 Pulse Oximetry 95 94 L 04/17/18 08:00 04/17/18 08:56 Temperature 97.9 F Pulse Rate 52 L Respiratory Rate 17 Blood Pressure 107/56 L Pulse Oximetry 95 95 Intake & Output 04/16/18 04/17/18 04/17/18 18:59 06:59 18:59 Intake Total 4672 / 4672 Output Total 5200 / 5200 2950 / 2950 450 / 450 Balance -528 / -528 -2950 / -2950 -450 / -450 Intake: IV 1050 / 1050 Cleocin 600 mg/NS Premix 600 mg 50 / 50 In 50 ml @ 100 mls/hr IV.SIG Q8H [facility] Rx#:[id number] NS Inj 1,000 ML @ Wide Open IV. 1000 / 1000 SIG BOLUS [facility] Rx#:[id number] Oral 3622 / 3622 Output: Urine 1700 / 1700 450 / 450 Urine Amount (Catheter) 3500 / 3500 2950 / 2950 Indwelling Urethral Catheter 3500 / 3500 2950 / 2950 Other: Date of Last Bowel Movement 04/17/18 04/17/18 # Bowel Movements 1 Result Diagrams: 04/17/18 04:32 04/17/18 04:32 Medications and IVs: Active Medications Generic Name Dose Route Start Last Admin Trade Name Freq PRN Reason Stop Dose Admin Calcium Carbonate 1 mg 04/17/18 00:36 04/17/18 00:47 Tums Chew CHEW 1 mg Q2H PRN Administration INDIGESTION Clonazepam 1 mg 04/15/18 21:00 04/17/18 08:59 Klonopin PO Not Given BID [facility] Docusate Sodium 100 mg 04/15/18 21:00 04/17/18 08:56 Colace PO 100 mg BID SONJA Administration Gabapentin 300 mg 04/15/18 21:00 04/17/18 08:56 Neurontin PO 300 mg BID SONJA Administration Sodium Chloride 1,000 mls @ 125 mls/hr 04/15/18 18:00 04/16/18 05:18 Ns Inj IV.SIG Infused .Q10H SONJA Infusion Levothyroxine Sodium 100 mcg 04/16/18 06:00 04/17/18 06:00 Synthroid PO Not Given DAILY@0600 [facility] Morphine Sulfate 4 mg 04/15/18 17:14 Morphine Inj IV.PUSH Q4H PRN BREAKTHROUGH PAIN Ondansetron HCl 4 mg 04/15/18 17:14 04/16/18 20:14 Zofran Inj IV.PUSH 4 mg Q6H PRN Administration NAUSEA OR VOMITING Oxycodone/Acetaminophen 2 tab 04/15/18 17:13 04/16/18 17:31 Percocet 5/325 Mg PO 2 tab Q4H PRN Administration PAIN SCALE 6 TO 10 Oxycodone/Acetaminophen 1 tab 04/15/18 17:17 04/17/18 05:43 Percocet 5/325 Mg PO 1 tab Q4H PRN Administration PAIN SCALE 3 TO 5 Pantoprazole Sodium 40 mg 04/15/18 21:00 04/16/18 20:13 Protonix PO 40 mg HS SONJA Administration Objective Remarks: NAD. A/O x 3 CTAB RRR soft, NT, ND. Inc c/d/i Ext NT. No edema. Assessment and Plan - Plan POD #2 s/p Left Robotic Nephroureterectomy -Good UOP. BP improved. Hep lock IVF. -Hgb stable. -Creatinine leveling off -Regular diet -Ambulate, IS. -Likely home tomorrow.
[2018-04-18] MEDS: Levothyroxine 100 MCG Tablet PO SCH (06:00)
[2018-04-18 06:30] LABS: Hematocrit 32.7 % (35.0-46.0); Hemoglobin 11.2 gm/dL (11.6-15.3); Mean Corpuscular HGB Conc 34.3 % (32.0-36.0); Mean Corpuscular Hemoglobin 29.8 pg (27.0-34.0); Mean Corpuscular Volume 86.8 fL (80.0-100.0); Mean Platelet Volume 8.7 fL (7.0-11.0); Platelet Count 122 th/mm3 (150-450); Red Blood Count 3.77 mil/mm3 (4.00-5.30); Red Cell Distribution Width 14.2 % (11.6-17.2); White Blood Count 5.1 th/mm3 (4.0-11.0)
[2018-04-18 07:03] LABS: Calcium 8.1 mg/dL (8.5-10.1); Potassium 4.2 meq/L (3.5-5.1)
[2018-04-18 07:07] LABS: Carbon Dioxide 26.2 meq/L (21.0-32.0)
[2018-04-18] MEDS: Gabapentin 300 MG Capsule PO SCH (08:36)
[2018-04-18] MEDS: clonazePAM 1 MG Tablet PO SCH (08:36)
[2018-04-18] MEDS: Docusate Sodium 100 MG Capsule PO SCH (08:36)
[2018-04-18 09:06] VITALS: O2SAT 96
[2018-04-18 12:53] VITALS: BP 108/50; PULSE 52; RESP 14; TEMP 97.5
--- NOTE | 2018-04-18 13:50 | P.PNURO ---
Subjective Patient symptoms today: Pt was seen at bedside. No new issues overnight. VS and labs are stable. + flatus. Tolerates diet and ambulates well. Pain controlled Objective Vital Signs: Vital Signs 04/17/18 16:00 04/17/18 20:00 04/17/18 21:44 Temperature 98.7 F 98.7 F Pulse Rate 77 59 L Respiratory Rate 17 18 18 Blood Pressure 137/66 131/60 Pulse Oximetry 95 94 L 04/18/18 00:00 04/18/18 08:00 04/18/18 12:00 Temperature 98.2 F 98.3 F 97.5 F L Pulse Rate 59 L 53 L 52 L Respiratory Rate 18 16 14 Blood Pressure 99/55 L 124/60 108/50 L Pulse Oximetry 91 L 96 96 Intake & Output 04/17/18 04/18/18 04/18/18 18:59 06:59 18:59 Intake Total 2021 480 / 480 Output Total 450 / 450 Balance 1572 / 1572 480 / 480 Weight 80.1 kg Intake: Oral 2021 480 / 480 Output: Urine 450 / 450 Other: Post Void Residual 5 Date of Last Bowel Movement 04/17/18 04/18/18 Result Diagrams: 04/18/18 04:05 04/18/18 04:05 Medications and IVs: Active Medications Generic Name Dose Route Start Last Admin Trade Name Freq PRN Reason Stop Dose Admin Calcium Carbonate 1 mg 04/17/18 00:36 04/17/18 14:11 Tums Chew CHEW 1 mg Q2H PRN Administration INDIGESTION Clonazepam 1 mg 04/15/18 21:00 04/18/18 08:36 Klonopin PO Not Given BID SONJA Docusate Sodium 100 mg 04/15/18 21:00 04/18/18 08:36 Colace PO 100 mg BID SONJA Administration Gabapentin 300 mg 04/15/18 21:00 04/18/18 08:36 Neurontin PO 300 mg BID SONJA Administration Levothyroxine Sodium 100 mcg 04/16/18 06:00 04/18/18 06:00 Synthroid PO Not Given DAILY@0600 SONJA Morphine Sulfate 4 mg 04/15/18 17:14 Morphine Inj IV.PUSH Q4H PRN BREAKTHROUGH PAIN Ondansetron HCl 4 mg 04/15/18 17:14 04/17/18 12:28 Zofran Inj IV.PUSH 4 mg Q6H PRN Administration NAUSEA OR VOMITING Oxycodone/Acetaminophen 2 tab 04/15/18 17:13 04/18/18 08:35 Percocet 5/325 Mg PO 2 tab Q4H PRN Administration PAIN SCALE 6 TO 10 Oxycodone/Acetaminophen 1 tab 04/15/18 17:17 04/17/18 13:19 Percocet 5/325 Mg PO 1 tab Q4H PRN Administration PAIN SCALE 3 TO 5 Pantoprazole Sodium 40 mg 04/15/18 21:00 04/17/18 21:14 Protonix PO 40 mg HS SONJA Administration Objective Remarks: NAD. A/O x 3 CTAB RRR soft, NT, ND. Inc c/d/i Ext NT. No edema. Assessment and Plan - Plan POD #3 s/p Left Robotic Nephroureterectomy -Good UOP. -Hgb stable. -Creatinine slightly elevated - tolerates Regular diet -Ambulates - meets criteria for d/c Discussed Condition With: Dr Jakob SHEPHERD attending
== END 2018-04-18 17:02 | disposition home or self-care (01) ==
LOC: HSDI 10:42 → N07 19:07
PROVIDERS: ADMIT Urology; ATTEND Urology